=== PATIENT | female | born 2000 | race Caucasian/White ===

== ENCOUNTER 2018-02-06 10:03 | Day surgery (SDC) | payer MEDICAID, OTHER ==
[2018-02-06 10:45] VITALS: BMI 33.1
--- NOTE | 2018-02-06 12:40 | PRG ---
DATE OF SERVICE: 02/06/2018 PRIMARY SHOE SALESPERSON: Dr. Juan Darby CHIEF COMPLAINT: Decreased movement. HISTORY OF PRESENT ILLNESS: The patient is a 17-year-old G1, P0 female with an intrauterine pregnanc y at 22 weeks and 2 days who is presenting with decreased movement since Monday night, approxim ately 2 days ago. The patient reports that she has been feeling her baby move for the last few weeks . The patient denies any recent illness, fever or rash in the last few weeks. The patient denies ch est pain, shortness of breath, nausea, vomiting, diarrhea, constipation. She does report that she gipson s some sensitivity to touch in the left upper quadrant at times that she attributes to exploratory mcnair rgery she has had there as a child. The patient denies any new rashes. She denies hip problems, kne e problems, muscle weakness. She denies vaginal bleeding, leakage of fluid. She denies urinary urge ncy or frequency. PAST MEDICAL HISTORY: Negative. PAST SURGICAL HISTORY: Negative. SOCIAL HISTORY: Denies drug, alcohol or tobacco use. ALLERGIES: No known drug allergies. MEDICATIONS: vitamins. OB LABS: Unavailable at time of dictation. REVIEW OF SYSTEMS: Per HPI. All review of systems are negative, unless stated in the HPI. PHYSICAL EXAMINATION: VITAL SIGNS: Blood pressure is 112/59, heart rate of 73, satting 97% on room air, respiratory rate i s 18. GENERAL: She appears to be in no acute distress. She is alert and oriented, cooperative and pleasan t to interact with. HEENT: Head is normocephalic, atraumatic. CHEST: Clear to auscultation bilaterally. HEART: Regular rate and rhythm. ABDOMEN: Soft. EXTREMITIES: Nontender, nonedematous. GENITOURINARY: exam has been deferred. heart tracing has been detected with a 22-week with a baseline in the 140s. Bedside ultrasound was performed. Amniotic fluid levels appeared normal. The placenta does not appear swoll en or enlarged or unusual. Fetus is moving actively and the patient denies feeling it. ASSESSMENT AND PLAN: The patient is a 17-year-old female G1, P0 female with an intrauterine pregnanc y at 22 weeks who has presented with decreased movement. Reassurance has been provided. There is no evidence of any acute or chronic problem as seen by ultrasound or by Doppler. The patient has been given reassurance and has a followup appointment with Dr. Darby in 3 weeks. We reviewed olivier webb and encouraged that she is going to do kick counting to try to feel about 10 movements over a 2-hour period sometime during the day when the baby is most active.
== END 2018-02-06 11:35 | disposition home health service (06) ==
LOC: L&D/OP 10:03
PROVIDERS: ATTEND Family Medicine
DX: O36.8120 Decreased fetal movements, second trimester, not applicable or unspecified (principal); Z3A.22 22 weeks gestation of pregnancy; Z79.899 Other long term (current) drug therapy
CPT/HCPCS: 76815; 99282

== ENCOUNTER 2018-06-02 19:57 | Inpatient (IN) | payer OTHER ==
[~2018-06-02 19:57] MED LIST: Bupivacaine 0.25% HCL 30 ML VIAL ONE
[2018-06-02 20:40] VITALS: BMI 35.9
--- NOTE | 2018-06-02 21:01 | PDOC.LDHP ---
Labor and Delivery H&P Chief complaint: contractions, loss of fluid HPI: term primip srom 1800 thin meconium cat 1 tracing Current gestational age (weeks): 39 Due date: 06/10/18 Grav: 1 OB History Details: merry villarreal txd, no darlin noted in chart Current complications: other Abnormal US findings: No Current medications: none, pre-abdullahi vitamins Allergies/Adverse Reactions: Allergies Allergy/AdvReac Type Severity Reaction Status Date / Time No Known Allergies Allergy Verified 06/02/18 20:31 Social history: none - Physical Exam Vital signs reviewed and normal: yes General: NAD, resting Heart: other Lungs: nonlabored breathing Abdomen: NTTP Extremeties: no edema FHT: category 1 [place] contractions every: 5 - Vaginal Exam cm dilated: 2 Effacement: 50% Station: -1 - OB Labs Blood type: A RH: positive Antibody Screen: negative HIV: negative RPR: negative HEPSAg: negative 1 hour GCT: negative GBS: negative Rubella: immune - Assessment L&D Assessment: term patient in labor - Plan Plan: admit to L&D, labor augmentation if indicated, anesthesia consult for pain management
[2018-06-02] MEDS ORDERED: NS / Oxytocin 40 units/1000ml 1,000 ML IV PRN (21:37)
[2018-06-02] MEDS ORDERED: Ondansetron PF 4 MG/2 ML Vial IVP PRN (21:37)
[2018-06-02] MEDS ORDERED: Ibuprofen 800 MG TAB PO PRN (21:37)
[2018-06-02] MEDS ORDERED: Butorphanol Tartrate 1 MG/ML VIAL SLOW IVP PRN (21:37)
[2018-06-02] MEDS ORDERED: Lactated Ringer's 1,000 ML IV SCH (21:37)
[2018-06-02] MEDS ORDERED: Promethazine HCl 25 MG/ML VIAL IM PRN (21:37)
[2018-06-02] MEDS ORDERED: Lidocaine 1% (PF) 30 ML VIAL SC PRN (21:37)
[2018-06-02] MEDS ORDERED: HYDROcodone/Acetaminophen 5/325 mg Tablet PO PRN ×2 (21:37)
[2018-06-02] MEDS ORDERED: NS w/ Oxytocin 10 units 500 ML IV SCH (21:37)
[2018-06-02 21:49] LABS: Hemoglobin 13.7 g/dL (12.0-16.0); Mean Corpuscular HGB CONC 35.5 g/dL (32.0-36.0); Mean Corpuscular Volume 92.9 fL (78.0-98.0); Mean Platelet Volume 9.1 fL (7.4-10.4); Platelet Count 214 thou/uL (130-400); RBC Distribution Width 12.1 % (11.5-14.5); Red Blood Cell (RBC) Count 4.15 mill/uL (4.00-5.20); White Blood Cell (WBC) Count 16.2 thou/uL (4.8-10.8)
[2018-06-02] MEDS: Lactated Ringer's 1,000 ML IV SCH (22:00)
[2018-06-02 22:15] LABS: Syphilis Antibody Nonreactive (Nonreactive); Syphilis Antibody Index 0.03 S/CO (<1.00 Non-Reactive)
[2018-06-02 23:11] LABS: HBSAg Index 0.16 S/CO (0-0.99); Hep B Surf Ag Non-Reactive S/CO (NonReactive)
[2018-06-02] MEDS ORDERED: Fentanyl 4 mcg/Bup 0.1% Cadd 100 ML ONE (23:57)
[2018-06-03] MEDS ORDERED: Ondansetron PF 4 MG/2 ML Vial IVP PRN ×2 (00:54→09:24)
[2018-06-03] MEDS ORDERED: Lactated Ringer's 500 ML IV PRN (00:54)
[2018-06-03] MEDS ORDERED: Naloxone HCl 0.4 mg/ml Vial IVP PRN ×2 (00:54)
[2018-06-03] MEDS ORDERED: diphenhydrAMINE 50 MG/ML VIAL IVP PRN (00:54)
[2018-06-03] MEDS ORDERED: Eucerin (Mineral Oil/Petrolatum,White) 30 gm Jar TOP PRN (00:54)
[2018-06-03] MEDS ORDERED: Acetaminophen 325 MG TAB PO PRN (00:54)
[2018-06-03] MEDS ORDERED: ePHEDrine/0.9% NaCl/PF SYRINGE 50 mg/10 ml SLOW IVP PRN (00:54)
[2018-06-03] MEDS ORDERED: Promethazine HCl 25 MG/ML VIAL IM PRN (00:54)
[2018-06-03] MEDS ORDERED: Communication Order-Pharmacy FS SCH (01:00)
[2018-06-03] MEDS ORDERED: Fentanyl 4 mcg/Bupivacaine 0.1% Cassette 100 ML EPIDURAL SCH (01:00)
[2018-06-03] MEDS: Lactated Ringer's 1,000 ML IV SCH ×3 (02:17→23:47)
[2018-06-03] MEDS ORDERED: NS / Oxytocin 40 units/1000ml 1,000 ML ONE (04:24)
[2018-06-03] MEDS ORDERED: Lidocaine 1% (PF) 30 ML VIAL ONE (04:24)
--- NOTE | 2018-06-03 06:28 | PDOC.OPDEL ---
OB Operative/Delivery Note Delivery Dr/Surgeon: Vipul Darby Pre-Delivery Diagnosis: active labor, other (thin meconium at term) Procedure/Post Delivery Dx: spontaneous vaginal delivery Weeks gestation: 39 Anesthesia: epidural - Findings A Sex: female (at 0608 06/03) - 1 min: 9 - 5 min: 9 - Additional Findings/Plan Placenta delivered: spontaneous Repaired Obstetrical Laceration: 2nd degree Estimated blood loss: <300 Compilations/Other Findings: placenta to pathology. repair with 2/0 chromic Post delivery plan: routine recovery
[2018-06-03] MEDS ORDERED: Adacel (T-DAP) 0.5 ML SYRINGE IM ONE (09:24)
[2018-06-03] MEDS ORDERED: Benzocaine/Menthol 20-0.5% 60 ML CAN TOP PRN (09:24)
[2018-06-03] MEDS ORDERED: Lanolin Ointment 7 GM TUBE TOP PRN (09:24)
[2018-06-03] MEDS ORDERED: diphenhydrAMINE 25 MG CAP PO PRN (09:24)
[2018-06-03] MEDS ORDERED: HYDROcodone/Acetaminophen 5/325 mg Tablet PO PRN (09:24)
[2018-06-03] MEDS ORDERED: Preparation H Ointment 28 GM TUBE PR PRN (09:24)
[2018-06-03] MEDS ORDERED: NS / Oxytocin 40 units/1000ml 1,000 ML IV SCH (09:24)
[2018-06-03] MEDS ORDERED: Prenatal Vitamin 1 TAB PO SCH ×2 (09:24→10:30)
[2018-06-03] MEDS ORDERED: Zolpidem Tartrate 5 MG TAB PO PRN (09:24)
[2018-06-03] MEDS ORDERED: Bisacodyl 10 MG SUPP PR PRN (09:24)
[2018-06-03] MEDS ORDERED: Docusate Calcium (SURFAK) 240 MG CAP PO SCH ×2 (09:24→10:30)
[2018-06-03] MEDS ORDERED: Milk Of Magnesia 30 ML UDCUP PO PRN (09:24)
[2018-06-03] MEDS ORDERED: Measles/Mumps/Rubella 10 MCG/0.5 ML VIAL SC ONE (09:24)
[2018-06-03] MEDS ORDERED: Sodium Chloride 0.9% 0 ML ONE (10:17)
[2018-06-03] MEDS: Ibuprofen 800 MG TAB PO SCH ×2 (13:39→22:05)
[2018-06-03] MEDS ORDERED: Sodium Chloride 0.9% 10 ML ONE (16:01)
[2018-06-03] MEDS: HYDROcodone/Acetaminophen 5/325 mg Tablet PO PRN (19:05)
[2018-06-03] MEDS: Docusate Calcium (SURFAK) 240 MG CAP PO SCH (22:06)
[2018-06-04] MEDS: Lactated Ringer's 1,000 ML IV SCH ×3 (05:38→23:13)
[2018-06-04] MEDS: Ibuprofen 800 MG TAB PO SCH ×3 (05:39→23:12)
[2018-06-04] MEDS: Docusate Calcium (SURFAK) 240 MG CAP PO SCH ×2 (09:02→21:25)
[2018-06-04] MEDS: Prenatal Vitamin 1 TAB PO SCH (09:02)
[2018-06-04] MEDS: HYDROcodone/Acetaminophen 5/325 mg Tablet PO PRN (09:04)
--- NOTE | 2018-06-04 09:36 | PRG ---
DATE OF SERVICE: 06/04/2018 SUBJECTIVE: The patient is day 1, status post a term spontaneous vaginal delivery. She is tolerating p.o., voiding on her own, having decreased lochia, and good pain control. OBJECTIVE: VITAL SIGNS: Today; blood pressure 113/73, temperature 97.9, pulse is 70, respiratory rate of 20, and saturating 97% on room air. GENERAL: The patient appears to be in no acute distress. She is alert and oriented, cooperative, pleasant to interact with. ABDOMEN: Fundus is firm at the umbilicus. EXTREMITIES: Nontender and nonedematous. ASSESSMENT AND PLAN: The patient is a G1, now P1 female, who is day 1, status post an uncomplicated term spontaneous vaginal delivery. We will continue inpatient care and anticipate discharge tomorrow. Job ID: [id number]
[2018-06-05] MEDS: Lactated Ringer's 1,000 ML IV SCH (06:47)
[2018-06-05 07:59] VITALS: BP 131/80; TEMP 98.4
[2018-06-05] MEDS: Prenatal Vitamin 1 TAB PO SCH (08:34)
[2018-06-05] MEDS: Ibuprofen 800 MG TAB PO SCH (08:34)
[2018-06-05] MEDS: Docusate Calcium (SURFAK) 240 MG CAP PO SCH (08:34)
== END 2018-06-05 13:15 | disposition home or self-care (01) | DRG 807 ==
LOC: L&D/OP 19:57 → L&D 21:16 → 3SW 06-03 10:27
PROVIDERS: ADMIT Family Medicine; ATTEND Family Medicine
PROC: 0KQM0ZZ Repair Perineum Muscle, Open Approach (ICD-10-PCS; principal; 2018-06-03)
PROC: 10E0XZZ Delivery of Products of Conception, External Approach (ICD-10-PCS; 2018-06-03)
DX: O77.0 Labor and delivery complicated by meconium in amniotic fluid (principal); Z37.0 Single live birth; O70.1 Second degree perineal laceration during delivery; Z23 Encounter for immunization; Z3A.39 39 weeks gestation of pregnancy
CPT/HCPCS: 51702; 85027; 86780; 86850; 86900; 86901; 87340; 88307; 90707; 99285; J2001; J2405; S0020